=== PATIENT | female | born 1960 | race Caucasian/White ===

== ENCOUNTER 2017-12-31 07:14 | Day surgery (SDC) | payer BC ==
[~2017-12-31 07:14] MED LIST: DIAZEPAM 5 MG TAB PO; DIPHENHYDRAMINE 50 MG CAP PO; FAMOTIDINE 20 MG TAB PO; SOD CHLORIDE 0.45% 1,000 ML IV
[2017-12-31 08:04] LABS: ADD MAN DIFF? NO
[2017-12-31 08:05] LABS: WHITE BLOOD COUNT 5.5 10^3/ul (4.8-10.8)
[2017-12-31 08:05] LABS: BASOPHILS % 0.5 % (0.0-2.0); EOSINOPHILS # 0.1 10^3/ul (0.0-0.5); EOSINOPHILS % 1.6 % (0.0-7.0); HEMATOCRIT 38.5 % (37.0-47.0); HEMOGLOBIN 13.4 g/dl (12.0-16.0); LYMPHOCYTES # 2.3 10^3/ul (0.8-2.9); LYMPHOCYTES % 41.6 % (15.0-51.0); MEAN CORPUSCULAR HEMOGLOBIN 29.4 pg (29.0-33.0); MEAN CORPUSCULAR HGB CONC 34.8 g/dl (32.0-37.0); MEAN CORPUSCULAR VOLUME 84.4 fl (82.0-101.0); MEAN PLATELET VOLUME 11.5 fl (7.4-10.4); MONOCYTE # 0.3 10^3/ul (0.3-0.9); MONOCYTES % 5.1 % (0.0-11.0); NEUTROPHIL # 2.8 10^3/ul (1.6-7.5); NEUTROPHILS % 50.8 % (39.0-77.0); PLATELET COUNT 177 10^3/UL (140-415); RED BLOOD COUNT 4.56 10^6/ul (4.20-5.40)
[2017-12-31 08:24] LABS: ANION GAP 8 (5-13); BLOOD UREA NITROGEN 18 mg/dl (7-20); CALCIUM 9.6 mg/dl (8.4-10.2); CARBON DIOXIDE 32 mmol/L (21-31); CHLORIDE 103 mmol/L (97-110); CHOL/HDL RATIO 5.4 RATIO; CHOLESTEROL 229 mg/dl (100-200); CREATININE 0.78 mg/dl (0.44-1.00); GLUCOSE 154 mg/dl (70-220); HDL CHOLESTEROL 42 mg/dl (35-98); LDL CHOLESTEROL,CALCULATED 156 mg/dl; POTASSIUM 3.8 mmol/L (3.5-5.1); SODIUM 143 mmol/L (135-144); TRIGLYCERIDES 157 mg/dl (0-149)
[2017-12-31 08:48] LABS: PROTIME 13.3 Sec (11.9-14.9)
[2017-12-31 08:49] LABS: PARTIAL THROMBOPLASTIN TIME 33.2 Sec (23.0-35.0)
[2017-12-31] MEDS ORDERED: LIDOCAINE 2% (MDV) 20 ML INJ (08:50)
[2017-12-31] MEDS ORDERED: VERAPAMIL 5 MG INJ (08:55)
[2017-12-31] MEDS ORDERED: HEPARIN 1000 UNITS/NS (A-LINE) 1,000 ML (08:55)
[2017-12-31] MEDS ORDERED: NITROGLYCERIN (IC) 100 MCG/ML INJ (08:55)
[2017-12-31] MEDS ORDERED: HEPARIN 1000 UNITS/ML 10 ML INJ (08:55)
[2017-12-31] MEDS ORDERED: FENTAnyl 50 MCG/ML VIAL (09:35)
[2017-12-31] MEDS ORDERED: MIDAZOLAM 1 MG/ML 2 ML INJ (09:35)
[2017-12-31] MEDS ORDERED: SOD CHLORIDE 0.9% 1,000 ML IV (10:05)
[2017-12-31] MEDS ORDERED: AL HYDROX/MG HYDROX/SIMETH 30 ML CUP PO (10:30)
[2017-12-31] MEDS ORDERED: ONDANSETRON 4 MG INJ IV (10:30)
[2017-12-31] MEDS ORDERED: ACETAMINOPHEN 325 MG TAB PO (10:30)
[2017-12-31] MEDS ORDERED: morphine 2 MG INJ IV (10:30)
== END 2017-12-31 16:02 | disposition home or self-care (01) ==
LOC: SDS 07:14
DX: I25.10 Atherosclerotic heart disease of native coronary artery without angina pectoris (principal); I10 Essential (primary) hypertension; E78.5 Hyperlipidemia, unspecified
CPT/HCPCS: 71045; 80048; 80061; 82962; 85025; 85610; 85730; 93005; 93458